=== PATIENT | male | born 1945 | race Caucasian/White ===

== ENCOUNTER 2022-08-29 17:47 | Emergency (ER) | payer MEDICARE, BC ==
[~2022-08-29] VITALS: Ht 177.8 cm; Wt 75.3 kg
--- NOTE | 2022-08-29 19:15 | NUR ---
Pt is noted responsive but confused and aggressive as report is received from the off going nurse that pt was sent in by [facility] due to aggressive behaviour and hitting staff with a history off Dementia, Glaucoma and Parkinson disease. Pt care continue as awaits for transferred.
[2022-08-29 19:45] LABS: ALANINE AMINOTRANSFERASE < 6 U/L (12-78); ALBUMIN 4.1 g/dL (3.4-5.0); ALKALINE PHOSPHATASE 117 U/L (46-116); ASPARTATE AMINOTRANSFERASE 16 U/L (15-37); BILIRUBIN,DIRECT 0.2 mg/dL (0.0-0.2); BILIRUBIN,TOTAL 0.7 mg/dL (0.2-1.0); CALCIUM, SERUM 9.1 mg/dL (8.5-10.1); CARBON DIOXIDE 26 mmol/L (21-32); CHLORIDE 105 mmol/L (98-107); GLUCOSE 93 mg/dL (74-106); POTASSIUM 4.1 mmol/L (3.5-5.1); SODIUM SERUM 138 mmol/L (136-145); TOTAL PROTEIN, SERUM 7.4 g/dL (6.4-8.2); UREA NITROGEN, BLOOD 31 mg/dL (7-18)
[2022-08-29 19:50] LABS: ACETAMINOPHEN 0 ug/ml (10-30); ALCOHOL, BLOOD < 3 mg/dL (0-0)
[2022-08-29] MEDS ORDERED: OLANZAPINE 10 MG VIAL IM ONE (20:30)
[2022-08-29 20:39] LABS: BASOPHILS % (AUTO) 0.5 % (0.0-2.0); EOSINOPHILS % (AUTO) 1.1 % (0.0-6.0); HEMATOCRIT 42 % (39-51); LYMPHOCYTES # (AUTO) 1.1 K/uL (0.8-4.8); LYMPHOCYTES % (AUTO) 22.2 % (20.0-44.0); MEAN CORPUSCULAR HGB CONC 34 g/dl (31.0-36.0); MEAN CORPUSCULAR VOLUME 92 fL (80-96); MONOCYTES # (AUTO) 0.5 K/uL (0.1-1.30); NEUTROPHILS # (AUTO) 3.4 K/uL (1.8-8.9); NEUTROPHILS % (AUTO) 66.2 % (43.0-81.0); PLATELET COUNT (AUTO) 179 K/uL (150-450); RED BLOOD CELL COUNT(AUTO) 4.55 MIL/uL (4.5-6.0); WHITE BLOOD COUNT (AUTO) 5.1 K/uL (4.3-11.0)
--- NOTE | 2022-08-29 20:47 | NUR ---
ZYPREXA 5MG IM GIVEN PT REMAIN VERY AGGRESSIVE , HITTING WITH HARD RESTRIANTS IN PLACE. PT CARE CONTINUE.
--- NOTE | 2022-08-29 21:30 | NUR ---
LISA TAFOYA AT [facility] SIDE
[2022-08-29 21:31] LABS: BILIRUBIN,URINE NEGATIVE (NEGATIVE); COLOR,URINE YELLOW (YELLOW); LEUKOCYTE ESTERASE ,URINE NEGATIVE (NEGATIVE); NITRITE, URINE NEGATIVE (NEGATIVE); PROTEIN,URINE TRACE mg/dl (NEGATIVE); UGLUCOSE NEGATIVE (NEGATIVE); UROBILINOGEN,URINE 0.2 EU/dL (0.2)
[2022-08-29 21:42] LABS: BACTERIA,URINE Few /HPF (None Seen); SQUAMOUS EPITHELIAL CELL,UR Few /HPF (None Seen); WBC,URINE 0-2 /HPF (0-3)
--- NOTE | 2022-08-29 22:55 | NUR ---
REPORT GIVEN TO SEAMUS MCWILLIASM FOR CONTINUATION OF CARE.
--- NOTE | 2022-08-29 22:59 | NUR ---
[facility] CALLED FOR BLS GOING TO [facility] PER [facility] ETA 90 MIN
--- NOTE | 2022-08-30 01:00 | NUR ---
Pt remain very confused with Restraints in place as awaits transportation as he will be transferred out to [facility]. Pt care continue.
--- NOTE | 2022-08-30 01:30 | NUR ---
Pt is noted off the by [facility] as he is been transferred out to [facility] with no s/s off distress.
[2022-08-30 01:41] VITALS: BP 144/107
== END 2022-08-30 01:51 | disposition short-term general hospital (02) ==
LOC: ER 17:55
DX: G20 Parkinson's disease (principal); F02.811 Dementia in other diseases classified elsewhere, unspecified severity, with agitation; Z20.822 Contact with and (suspected) exposure to COVID-19
CPT/HCPCS: 99291; 96372; 85025; 80048; 80076; 81001; 36415; 87426; 80143; 80320; 80307; J3490; C9803; G0480